=== PATIENT | female | born 1945 | race Caucasian/White ===

== ENCOUNTER 2017-05-12 09:07 | Outpatient (CLI) | payer MEDICARE, BC ==
[~2017-05-12 09:07] MED LIST: APRE1TAB2 PO; ATOR40TA3 PO; AZIL1TAB3 PO; CHOL10002 PO; CLOB15CR4 TP; CODE1CAP54 PO; CYAN-19 PO; CYCL-1 PO; DULO60CA45 PO; FENO160T13 PO; GABA600T PO; LIRA0.6P SQ; LORA0.5T PO; METF850T2 PO; NIFE90TA2 PO; NITR0.4T SL; OMEP20CA10 PO
[2017-05-12 09:19] VITALS: BP 124/65
== END 2017-05-12 10:10 | disposition home or self-care (01) ==
LOC: ORTHO 09:07
PROVIDERS: ATTEND Nurse Practitioner Family
DX: S63.259A Unspecified dislocation of unspecified finger, initial encounter (principal); W01.0XXA Fall on same level from slipping, tripping and stumbling without subsequent striking against object, initial encounter; Y92.838 Other recreation area as the place of occurrence of the external cause
CPT/HCPCS: 99211

== ENCOUNTER 2018-09-20 19:50 | Inpatient (IN) | payer MEDICARE, BC | END 2018-09-21 16:00 | disposition home or self-care (01) | LOC: ER 19:50 → ED HOLD 09-21 01:24 → PCU 3S 09-21 02:38 | DX: C91.10 Chronic lymphocytic leukemia of B-cell type not having achieved remission (principal); N17.9 Acute kidney failure, unspecified; E87.5 Hyperkalemia; J40 Bronchitis, not specified as acute or chronic ==

== ENCOUNTER 2018-10-19 07:00 | Outpatient (CLI) | payer MEDICARE, BC ==
[~2018-10-19] VITALS: Ht 160 cm; Wt 87.5 kg
[~2018-10-19 07:00] MED LIST changes: +ALLO100T PO; -APRE1TAB2 PO; +ASPI-1265 PO; -ATOR40TA3 PO; +ATOR40TA7 PO; -CHOL10002 PO; +CYAN-19 IM; -CYAN-19 PO; +DULA1.5P; +METF-437 PO; -METF850T2 PO; +METO25TA6 PO; +PRAM0.253 PO; +SECU150P SQ
[2018-10-19] MEDS ORDERED: albuterol 2.5 MG/3 ML nebule NEB ONE (07:50)
== END 2018-10-19 23:59 | disposition home or self-care (01) ==
LOC: RT 07:00
PROVIDERS: ATTEND Family Medicine
DX: J47.1 Bronchiectasis with (acute) exacerbation (principal); R91.8 Other nonspecific abnormal finding of lung field; J45.909 Unspecified asthma, uncomplicated; I10 Essential (primary) hypertension; E11.9 Type 2 diabetes mellitus without complications; Z90.710 Acquired absence of both cervix and uterus
CPT/HCPCS: 94010; 94727; 94729

== ENCOUNTER 2019-07-17 08:01 | Day surgery (SDC) | payer MEDICARE, BC ==
[~2019-07-17] VITALS: Ht 170.2 cm; Wt 91.0 kg
[~2019-07-17 08:01] MED LIST changes: -CYAN-19 IM; +CYAN-51 IM; -OMEP20CA10 PO; +OMEP20CA15 PO
[2019-07-17 08:15] VITALS: BP 157/76
[2019-07-17] MEDS ORDERED: LIDOcaine 1% W/epiNEPHrine 1:100,000 20ml vial IJ ONE (08:25)
[2019-07-17] MEDS ORDERED: [UNRECOGNIZED DRUG - CODE] (08:39)
[2019-07-17] MEDS ORDERED: NPH,100V2 SQ (08:41)
[2019-07-17] MEDS ORDERED: PROC-8 PO (08:43)
[2019-07-17] MEDS ORDERED: BENZ-16 PO (08:44)
[2019-07-17] MEDS ORDERED: INSU100V12 SQ (08:45)
[2019-07-17] MEDS ORDERED: INSU100V41 (08:46)
[2019-07-17] MEDS ORDERED: METF-950 PO (08:49)
[2019-07-17] MEDS ORDERED: FENOFIB PO (08:49)
[2019-07-17] MEDS ORDERED: LIDOcaine 1%/PF 5ML 10 MG/ML VIAL ONE (11:19)
[2019-07-17 12:12] VITALS: BP 154/79
[2019-07-17 12:30] VITALS: BP 154/80
[2019-07-17 12:45] VITALS: BP 148/81
== END 2019-07-17 13:00 | disposition home or self-care (01) ==
LOC: SSTAY O 08:01
PROVIDERS: ATTEND Radiology Diagnostic Radiology
DX: Z45.2 Encounter for adjustment and management of vascular access device (principal); E11.9 Type 2 diabetes mellitus without complications; I10 Essential (primary) hypertension; E78.5 Hyperlipidemia, unspecified; K21.9 Gastro-esophageal reflux disease without esophagitis; C91.10 Chronic lymphocytic leukemia of B-cell type not having achieved remission; Z79.4 Long term (current) use of insulin; Z79.899 Other long term (current) drug therapy; Z82.49 Family history of ischemic heart disease and other diseases of the circulatory system; Z83.3 Family history of diabetes mellitus
CPT/HCPCS: 36590

== ENCOUNTER 2020-10-26 10:35 | Emergency (ER) | payer MEDICARE, BC ==
[~2020-10-26] VITALS: Ht 160 cm; Wt 86.3 kg
[~2020-10-26 10:35] MED LIST changes: -ALLO100T PO; -ASPI-1265 PO; -AZIL1TAB3 PO; +BENZ-16 PO; -CLOB15CR4 TP; -CODE1CAP54 PO; -CYAN-51 IM; -CYCL-1 PO; -DULA1.5P; -DULO60CA45 PO; +FENOFIB PO; +INSU100V12 SQ; +INSU100V41; -LIRA0.6P SQ; +LOP25T PO; -METF-437 PO; +METF-950 PO; -METO25TA6 PO; -NITR0.4T SL; +NPH,100V2 SQ; -PRAM0.253 PO; +PROC-8 PO; +[UNRECOGNIZED DRUG - CODE]
[2020-10-26] MEDS ORDERED: HYDROcodone/acetaminophen 5mg/325mg tablet PO ONE (14:15)
[2020-10-26 15:37] VITALS: BP 119/77
[2020-10-26] MEDS ORDERED: HYDR-3965 PO (15:50)
[2020-10-26] MEDS ORDERED: DOXY100C2 PO (15:50)
[2020-10-26] MEDS ORDERED: ALBU8HFA PO (15:50)
[2020-10-26] MEDS ORDERED: LIDO700A32 TOP (15:57)
== END 2020-10-26 16:00 | disposition home or self-care (01) ==
LOC: ER 10:35
DX: M54.42 Lumbago with sciatica, left side (principal); M54.41 Lumbago with sciatica, right side; J40 Bronchitis, not specified as acute or chronic; M79.606 Pain in leg, unspecified; E78.00 Pure hypercholesterolemia, unspecified; I10 Essential (primary) hypertension; E11.9 Type 2 diabetes mellitus without complications; Z90.49 Acquired absence of other specified parts of digestive tract; Z90.710 Acquired absence of both cervix and uterus; Z79.899 Other long term (current) drug therapy; Z79.4 Long term (current) use of insulin
CPT/HCPCS: 71045; 72148; 99284

== ENCOUNTER 2021-02-03 09:18 | Emergency (ER) | payer MEDICARE, BC ==
[~2021-02-03] VITALS: Ht 160 cm; Wt 88.2 kg
[~2021-02-03 09:18] MED LIST changes: +LIDO700A32 TOP
[2021-02-03 09:35] VITALS: BP 116/69
[2021-02-03] MEDS ORDERED: AZIT-63 PO (10:58)
== END 2021-02-03 11:17 | disposition home or self-care (01) ==
LOC: ER 09:18
DX: J20.9 Acute bronchitis, unspecified (principal); Z20.822 Contact with and (suspected) exposure to COVID-19; I10 Essential (primary) hypertension; E11.9 Type 2 diabetes mellitus without complications; Z79.2 Long term (current) use of antibiotics; Z79.899 Other long term (current) drug therapy; Z90.49 Acquired absence of other specified parts of digestive tract; Z90.710 Acquired absence of both cervix and uterus
CPT/HCPCS: 71045; 87635; 93005; 99285; C9803; 99283

== ENCOUNTER 2021-02-24 11:56 | Emergency (ER) | payer MEDICARE, BC ==
[~2021-02-24] VITALS: Ht 160 cm; Wt 85.0 kg
[~2021-02-24 11:56] MED LIST changes: +AZIT-63 PO
[2021-02-24 12:06] VITALS: BP 107/85
[2021-02-24] MEDS ORDERED: PRED20TA PO (13:28)
[2021-02-24] MEDS ORDERED: AMOX-422 PO (13:28)
[2021-02-24] MEDS ORDERED: ALBU6.7H9 INH (13:28)
== END 2021-02-24 13:55 | disposition home or self-care (01) ==
LOC: ER 11:56
DX: J20.9 Acute bronchitis, unspecified (principal); Z20.822 Contact with and (suspected) exposure to COVID-19; E78.00 Pure hypercholesterolemia, unspecified; I10 Essential (primary) hypertension; E11.9 Type 2 diabetes mellitus without complications; Z90.49 Acquired absence of other specified parts of digestive tract; Z90.710 Acquired absence of both cervix and uterus; Z79.2 Long term (current) use of antibiotics; Z79.899 Other long term (current) drug therapy; Z79.4 Long term (current) use of insulin
CPT/HCPCS: 71045; 87635; 99284; C9803; 99283

== ENCOUNTER 2022-02-13 18:41 | Emergency (ER) | payer BC, MEDICARE ==
[~2022-02-13] VITALS: Ht 160 cm; Wt 85.5 kg
[~2022-02-13 18:41] MED LIST changes: +ALBU6.7H9 INH; -AZIT-63 PO; +METF-1203 PO; -METF-950 PO
--- NOTE | 2022-02-13 18:56 | NUR ---
CONTACTED POISON CONTROL FOR INGESTION ERROR OF 16 IMMODIUM W/N 12 HOURS. THIS CAN CAUSE SEDATION AND DIFFICULTY BREATHING. RECOMMEND GETTING AN EKG, WATCH FOR A COUPLE HOURS, REPEAT EKG, AND THEN FEEL FREE TO SEND HER BACK HOME WITH EDUCATION ON PROPER MEDICATION COMPLIANCE. PT VITALS WERE STABLE IN TRIAGE AND HER ORIENTATION A/O X 4 W/O ANY DIFFICULTY BREATHING/RESPIRATORY DISTRESS.
[2022-02-13] MEDS ORDERED: normal saline 1000ML IV soln IVB ONE (22:00)
[2022-02-13 22:09] LABS: BASOPHILS % (AUTO) 0.4 % (0-1); EOSINOPHILS # (AUTO) 0.1 X10'3 (0-0.9); EOSINOPHILS % (AUTO) 1.2 % (0-6); HEMATOCRIT 30.2 % (35.0-45.0); LYMPHOCYTES # (AUTO) 1.8 X10'3 (1.1-4.8); LYMPHOCYTES % (AUTO) 30.3 % (21-51); MEAN CORPUSCULAR HEMOGLOBIN 29.8 PG (27.0-31.0); MEAN CORPUSCULAR HGB CONC 33.3 g/dL (33.0-36.5); MEAN CORPUSCULAR VOLUME 89.6 FL (78-98); MEAN PLATELET VOLUME 7.1 FL (7.4-10.4); MONOCYTES # (AUTO) 0.6 X10'3 (0-0.9); MONOCYTES % (AUTO) 9.9 % (2-12); NEUTROPHILS # (AUTO) 3.5 X10'3 (1.8-7.7); NEUTROPHILS % (AUTO) 58.2 % (42-75); PLATELET COUNT 419 X10'3 (140-440); RED BLOOD COUNT 3.37 X10'6 (4.20-5.60); RED CELL DISTRIBUTION WIDTH 13.9 % (11.5-14.5); WHITE BLOOD COUNT 6.1 X10'3 (4.5-11.0)
[2022-02-13 22:19] LABS: ALANINE AMINOTRANSFERASE 22 U/L (12-78); ALBUMIN/GLOBULIN RATIO 0.8 (1.1-1.5); ALKALINE PHOSPHATASE 60 IU/L (46-116); ANION GAP 13 (8-16); ASPARTATE AMINO TRANSFERASE 24 U/L (10-37); BILIRUBIN,TOTAL 0.2 MG/DL (0.1-1.0); BLOOD UREA NITROGEN 26 MG/DL (7-18); BUN/CREATININE RATIO 15.1 (6.6-38.0); CALCIUM 8.4 MG/DL (8.5-10.1); CHLORIDE 106 MMOL/L (99-107); CREATININE 1.72 MG/DL (0.40-0.90); GLUCOSE 285 MG/DL (70-104); LIPASE 133 U/L (73-393); MAGNESIUM 1.1 MG/DL (1.5-2.4); POTASSIUM 4.4 MMOL/L (3.5-5.1); SODIUM 139 MMOL/L (135-145); TOTAL CARBON DIOXIDE 20.4 MMOL/L (24-32); TOTAL PROTEIN 6.7 G/DL (6.4-8.2); eGFR 29 ML/MIN
[2022-02-14] MEDS ORDERED: AMOX-117 PO (01:29)
[2022-02-14] MEDS ORDERED: amox tr/potassium clavulanate 875/125mg TAB PO ONE (01:30)
[2022-02-14 01:49] VITALS: BP 130/59
[2022-02-14 09:00] LABS: C DIFF SPECIMEN=DIARRHEA? ACCEPTABLE; C DIFFICILE TOXINS A&B NEGATIVE (Neg)
== END 2022-02-14 01:51 | disposition home or self-care (01) ==
LOC: ER 18:42
DX: R19.7 Diarrhea, unspecified (principal); E78.00 Pure hypercholesterolemia, unspecified; I10 Essential (primary) hypertension; E11.9 Type 2 diabetes mellitus without complications; Z90.49 Acquired absence of other specified parts of digestive tract; Z90.710 Acquired absence of both cervix and uterus
CPT/HCPCS: 36415; 80053; 83690; 83735; 85025; 87045; 87046; 87324; 87449; 89055; 93005; 96360; 99285; J7030

== ENCOUNTER 2024-11-12 23:34 | Emergency (ER) | payer BC, MEDICARE ==
[~2024-11-12] VITALS: Ht 160 cm; Wt 85.0 kg
[~2024-11-12 23:34] MED LIST changes: -ALBU6.7H9 INH; +ALBU90AE INH; -ATOR40TA7 PO; +AZIL1TAB3 PO; +DULO60CA65 PO; -FENOFIB PO; -INSU100V12 SQ; -LIDO700A32 TOP; -LORA0.5T PO; -NPH,100V2 SQ; +PRAM0.258 PO; -PROC-8 PO; +ROSU40TA89 PO; -SECU150P SQ; +SECU300P SQ; +SEMA1PEN3 SQ; -[UNRECOGNIZED DRUG - CODE]
--- NOTE | 2024-11-12 23:44 | ELECTROCARDIOGRAPH REPORT ---
[facility] Test Date: 2024-11-12 Test Time: 23:41:10 Pat Name: WERO PUGH Department: [facility]-ER Patient ID: [facility]-[id number] Room: Gender: F Tandem Operator: : 1945 Requested By: JACINDA HARPER Order Number: [id number] Reading MD: Dr. Sonja Gifford Measurements Intervals [place] Rate: 76 P: 59 TN: 196 QRS: 82 QRSD: 105 T: 56 QT: 396 QTc: 446 Interpretive Statements Sinus rhythm Borderline right axis deviation Electronically Signed On 11-13-2024 18:49:[address] Sonja Gifford Please click the below link to view image of tracing.
[2024-11-13 00:08] LABS: ALBUMIN 3.7 G/DL (3.4-5.0); ANION GAP 9 (8-16); BLOOD UREA NITROGEN 33 MG/DL (7-18); BUN/CREATININE RATIO 29.7 (10.0-20.0); CALCIUM 9.2 MG/DL (8.5-10.1); CHLORIDE 103 MMOL/L (99-107); CREATININE 1.11 MG/DL (0.40-0.90); GLUCOSE 116 MG/DL (70-104); POTASSIUM 3.5 MMOL/L (3.5-5.1); SODIUM 142 MMOL/L (135-145); TOTAL CARBON DIOXIDE 29.6 MMOL/L (24-32); eCRCL 35 ML/MIN; eGFR 48 ML/MIN
--- NOTE | 2024-11-13 00:11 | Physician Documentation ---
History of Present Illness ~ Chief Complaint: Mechanical Fall Stated Complaint: FALL Time Seen by MD: 23:36 Primary Medical Doctor: Cristo Silva Source: patient, family Mode of Arrival: POV, Ambulatory HPI history of diabetes mellitus presenting for near syncopal episode. She is visiting the emergency department with her who is a patient. She was on her feet for quite awhile when I observed her become lightheaded and fall flat on her face. She never completely lost consciousness was briefly confused. She is complaining of mild scalp discomfort and acute on chronic neck pain Tetanus within 5 Years?: Yes Medication Reconciliation Allergies: Coded Allergies: lactulose (Verified Allergy, Unknown, 04/19/23) Scheduled Azilsartan Med/Chlorthalidone (Edarbyclor 40-12.5 mg Tablet), 1 TAB PO QAM, (Reported) Duloxetine HCl (Duloxetine HCl), 1 CAP PO BID, (Reported) Fenofibrate (Fenofibrate), 1 TABLET PO DAILY, (Reported) Gabapentin (Neurontin), 2 TABLET PO BID, (Reported) Metformin HCl (Metformin HCl), 1 TAB PO BID, (Reported) Metoprolol Tartrate* (Lopressor tablet*), 1 TAB PO Q12H, (Reported) Nifedipine* (Procardia Xl*), 1 TABLET PO DAILY, (Reported) Omeprazole (Omeprazole), 1 CAP PO DAILY, (Reported) Pramipexole Di-Hcl (Pramipexole Dihydrochloride), 2 TAB PO HS, (Reported) Rosuvastatin Calcium (Rosuvastatin Calcium), 1 TAB PO DAILY, (Reported) Secukinumab (Cosentyx Unoready Pen), 300 MG SQ Q30D, (Reported) Semaglutide (Ozempic), 1 MG SQ Q7D, (Reported) Scheduled PRN Albuterol Sulfate (Proair Respiclick), 2 PUFFS INH Q4HPRN PRN for shortness of breath, (Reported) Benzonatate* (Tessalon Perles*), 2 CAP PO TID PRN for cough & congestion, (Reported) Miscellaneous Medications Insulin Degludec (Tresiba), 100 UNIT, (Reported) Past Medical History Past Medical History: High Cholesterol, Hypertension, Diabetes, *CANCER*, Lymphoma Past Surgical History: cholecystectomy, hysterectomy Patient History: (CVA) Cerebrovascular accident FATHER, , Age: 75, Cause: Stroke (DM Type 2) Diabetes mellitus type 2 CHILD, Name: PRANAV WU (STENT, HYPERTENSION & HAS DIABETES), Age: 47 Other Past Family History: Father CVA Alcohol Use: None Drug Use: none Lives with: Spouse Lives In: Home Occupation: retired Review of Systems All Other Systems at this time: Reviewed and Negative Respiratory: Denies: shortness of breath Cardiovascular: Denies: chest pain Physical Exam Vital Signs: Temperature: 98.4, Source: Oral, Heart Rate: 77, Respiratory Rate: 19, BP: 172/84, Pulse Oximetry: 100, Weight: 85.000 Oxygen Flow Rate: 0 Physical Exam HEENT 3 cm hematoma above her right eyebrow C7 tenderness no deformity Skin intact Neuro awake alert oriented [place] Progress Results/Orders Reviewed/noted all lab results: Yes Results/Orders Orders - JACINDA HARPER MD Ct Head (11/13/24 00:00) Ct Cervical Spine (11/13/24 00:00) Completed Orders - JACINDA HARPER MD Cbc/Diff (11/12/24 23:37) BMP (11/12/24 23:37) Electrocardiogram (11/12/24 ) Ct Head (11/13/24 00:00) Ct Cervical Spine (11/13/24 00:00) Troponin (Single) (11/13/24 00:59) Vital Signs 11/12/24 11/12/24 11/12/24 11/13/24 23:36 23:38 23:59 00:49 Temp 98.4 98.4 98.4 Pulse 81 77 73 Resp 16 16 19 19 B/P (MAP) 185/95 172/84 (113) 176/81 (112) Pulse Ox 96 100 100 O2 Flow Rate 0 0 0 Laboratory Tests Test 11/12/24 23:39 11/12/24 23:46 11/12/24 23:49 Glucometer 127 H White Blood Count 5.4 Red Blood Count 4.58 Hemoglobin 13.0 Hematocrit 38.6 Mean Corpuscular Volume 84.3 Mean Corpuscular Hemoglobin 28.5 Mean Corpuscular Hemoglobin Concent 33.8 Red Cell Distribution Width 14.1 Platelet Count 339 Mean Platelet Volume 6.6 L Neutrophils (%) (Auto) 45.6 Lymphocytes (%) (Auto) 40.1 Monocytes (%) (Auto) 7.9 Eosinophils (%) (Auto) 6.0 Basophils (%) (Auto) 0.4 Neutrophils # (Auto) 2.4 Lymphocytes # (Auto) 2.2 Monocytes # (Auto) 0.4 Eosinophils # (Auto) 0.3 Basophils # (Auto) 0.0 CBC Comment Sodium Level 142 Potassium Level 3.5 Chloride Level 103 Carbon Dioxide Level 29.6 Anion Gap 9 Blood Urea Nitrogen 33 H Creatinine 1.11 H Estimated GFR/1.73 m2 48 BUN/Creatinine Ratio 29.7 H Glucose Level 116 H Calcium Level 9.2 Albumin 3.7 Chemistry Comments Troponin I High Sensitivity 9 EKG/XRAY/CT/US/VASC/MRI EKG : Additional Comment EKG independently interpreted by myself shows normal sinus rhythm rate 76 normal axis normal intervals no ST or T-wave abnormalities CT : Impression CT head independently interpreted by myself shows no intracranial hemorrhage Medical Decision Making Additional Comment Considered intracranial hemorrhage, cervical spine injury, concussion Departure Disposition: 01 HOME / SELF CARE / HOMELESS Impression: Primary Impression: Syncope and collapse Additional Impression Text Patient had syncopal episode while standing for prolonged period of time tending to her who was a patient in our emergency department. She never completely lost consciousness however was slightly confused for a short period of time. She has a large hematoma on her right forehead. Your CT head was unremarkable. C-spine also unremarkable EKG lab work and troponin all within normal limits. She had complete resolution of her symptoms. Apparently her f amily states that she has had multiple episodes in the past. She has not want to stay in the hospital as she is preoccupied with her . I do think she warrants an outpatient echocardiogram which she agrees to follow up on Additional Instructions: Your tests were all normal today. Please be avoid staying in a upright position for such a long period of time. Ensure that you sit down and take plenty of breaks Referrals: NO PRIMARY CARE PROVIDER (PCP) Signature Scribe Signature: na Attestation: JACINDA Posada MD November 13, 2024 00:11
[2024-11-13 00:25] LABS: BASOPHILS % (AUTO) 0.4 % (0-1); EOSINOPHILS # (AUTO) 0.3 X10'3 (0-0.9); HEMATOCRIT 38.6 % (35.0-45.0); LYMPHOCYTES # (AUTO) 2.2 X10'3 (1.1-4.8); LYMPHOCYTES % (AUTO) 40.1 % (21-51); MEAN CORPUSCULAR HEMOGLOBIN 28.5 PG (27.0-31.0); MEAN CORPUSCULAR HGB CONC 33.8 g/dL (33.0-36.5); MEAN CORPUSCULAR VOLUME 84.3 FL (78-98); MEAN PLATELET VOLUME 6.6 FL (7.4-10.4); MONOCYTES # (AUTO) 0.4 X10'3 (0-0.9); MONOCYTES % (AUTO) 7.9 % (2-12); NEUTROPHILS # (AUTO) 2.4 X10'3 (1.8-7.7); NEUTROPHILS % (AUTO) 45.6 % (42-75); PLATELET COUNT 339 X10'3 (140-440); RED BLOOD COUNT 4.58 X10'6 (4.20-5.60); RED CELL DISTRIBUTION WIDTH 14.1 % (11.5-14.5); WHITE BLOOD COUNT 5.4 X10'3 (4.5-11.0)
--- NOTE | 2024-11-13 00:34 | RADIOLOGY REPORT ---
Clinical History head trauma Comparison CT HEAD on 11/04/2016, 65 images. Technique: Noncontrast CT volume data aquisition of the head viewed in axial, coronal and sagittal pl anes. All CT scans at this medical facility are performed using dose modulation techniques as appropriate t o a performed exam including the following: Automated exposure control was utilized; adjustment of th e mA and/or kV according to patient size; and use of iterative reconstruction technique. All CT studies are reported to the Dose Index Registry of the [employer]. Without Contrast Radiation Dose: CTDI (mGy): 58.11; DLP (mGy-cm): 1125.31 WERO PUGH, [id number] FINDINGS: There is cortical and central atrophy with minimal probable chronic ischemic change in periventricula r white matter. Ventricles are of normal shape and position. There are no intra-axial or extra-axial collections of blood or fluid. There is no mass, mass effect or shift of midline structures. There is no CT eviden ce for acute ischemic infarct. MRI is more sensitive for this diagnosis. Posterior fossa structures are unremarkable. Sella and parasellar regions are unremarkable. Basal c isterns are patent. Orbits and orbital contents are unremarkable, paranasal sinuses and mastoid air cells clear, osseous structures intact. There is a right frontal scalp wound. IMPRESSION: 1. Cortical and central atrophy, minimal probable chronic ischemic change in periventricular white m atter. 2. No evidence of acute intracranial pathology identified on noncontrast CT. 3. No evidence of intracranial hemorrhage, no evidence of skull fracture. 4. Right frontal scalp wound This report was electronically signed by Brady Lane MD on 11/13/2024 12:30:40 AM.
--- NOTE | 2024-11-13 00:48 | RADIOLOGY REPORT ---
Clinical History neck trauma Comparison None Technique: Noncontrast CT volume data acquisition of the cervical spine presented in axial, coronal a nd sagittal planes All CT scans at this medical facility are performed using dose modulation techniques as appropriate t o a performed exam including the following: Automated exposure control was utilized; adjustment of th e mA and/or kV according to patient size; and use of iterative reconstruction technique. All CT studies are reported to the Dose Index Registry of the [employer]. Without Contrast Radiation Dose: CTDI (mGy): 24.12; DLP (mGy-cm): 447.61 LEXYWERO, [id number] FINDINGS: Vertebral bodies are of normal height, posterior elements intact, facet relationships maintained. Craniocervical junction structures and relationships do not suggest acute pathology. There is no evidence of acute fracture of the cervical spine. There is multilevel degenerative change including anterior spondylosis with some bridging osteophytes , multilevel loss of intervertebral disc height, degenerative endplate changes, multilevel posterior disc/osteophyte complex formations and some facet hypertrophic arthropathy. There is approximately 2 -3 mm anterolisthesis C3 on C4 which appears to be on a degenerative basis. Paraspinous and paravertebral soft tissue structures are unremarkable, airway patent, epiglottis norm al, thyroid gland unremarkable. Limited evaluation of lung apices is unremarkable. IMPRESSION: 1. No evidence of acute fracture of the cervical spine. 2. Multilevel degenerative change as described, no evidence to suggest significant spinal canal sten osis. This report was electronically signed by Brady Lane MD on 11/13/2024 12:46:11 AM.
[2024-11-13 01:53] VITALS: PULSE 87
[2024-11-13] MEDS: ondansetron 4mg rapidly disintigrating tab PO ONE (02:03)
[2024-11-13 02:05] VITALS: BP 156/70; TEMP 98.4; O2SAT 100
== END 2024-11-13 02:12 | disposition home or self-care (01) ==
LOC: ER 23:35
DX: R55 Syncope and collapse (principal); I10 Essential (primary) hypertension; E11.9 Type 2 diabetes mellitus without complications; E78.00 Pure hypercholesterolemia, unspecified; Z88.8 Allergy status to other drugs, medicaments and biological substances; Z90.49 Acquired absence of other specified parts of digestive tract; Z90.710 Acquired absence of both cervix and uterus
CPT/HCPCS: 36415; 70450; 72125; 80048; 82948; 84484; 85025; 93005; 99285

== ENCOUNTER 2024-12-08 12:30 | Outpatient (CLI) | payer MEDICARE, BC ==
--- NOTE | 2024-12-08 19:24 | RADIOLOGY REPORT ---
PROCEDURE: MR MRI LUMBAR SPINE INDICATION: RADICULOPATHY, LUMBAR REGION Exam Date: 12/08/2024 12:42 PM COMPARISON: MRI LUMBAR SPINE on DOS: 10/26/20 TECHNIQUE: MRI lumbar spine without intravenous contrast. FINDINGS: Levoscoliosis. Grade 1 anterolisthesis L4 on L5. There are degenerative endplate changes including mo dic endplate changes with anterior and lateral osteophytes throughout the lumbar spine. The visualize d distal spinal cord and conus medullaris are within normal limits. The conus medullaris appears to terminate within normal limits. The visualized retroperitoneal and paraspinal soft tissues are unrem arkable. The following axial levels are detailed below: T12-L1: Unremarkable. L1-L2: There is a mild circumferential disc bulge. No significant central canal or neuroforaminal s tenosis. L2-L3: There is a moderate circumferential disc bulge complicated by facet arthropathy associated w ith mild to moderate bilateral neuroforaminal stenosis. No significant central canal stenosis. L3-L4: There is a severe circumferential disc bulge complicated by facet arthropathy narrowing the central canal to 6 mm with associated moderate to severe bilateral neuroforaminal stenosis. L4-L5: There is a severe circumferential disc bulge complicated by facet arthropathy narrowing the central canal to 4 mm with associated moderate to severe bilateral neuroforaminal stenosis. L5-S1: There is a moderate circumferential disc bulge complicated by facet arthropathy associated wi th mild to moderate bilateral neuroforaminal stenosis. No significant central canal stenosis. IMPRESSION: 1. 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 Grade 1 anterolisthesis of L4 on L5. Neural foraminal stenosis as abov e. Overall, findings are slightly progressed compared to prior exam. HS:Y
== END 2024-12-08 23:59 | disposition home or self-care (01) ==
LOC: MRI02 12:30
PROVIDERS: ATTEND Family Medicine Sports Medicine
DX: M47.26 Other spondylosis with radiculopathy, lumbar region (principal); M51.16 Intervertebral disc disorders with radiculopathy, lumbar region; M51.379 Other intervertebral disc degeneration, lumbosacral region without mention of lumbar back pain or lower extremity pain; M47.817 Spondylosis without myelopathy or radiculopathy, lumbosacral region; M41.86 Other forms of scoliosis, lumbar region; M25.78 Osteophyte, vertebrae; M48.07 Spinal stenosis, lumbosacral region; M54.50 Low back pain, unspecified; M77.9 Enthesopathy, unspecified
CPT/HCPCS: 72148